=== PATIENT | female | born 1975 | race Caucasian/White ===

== ENCOUNTER → 2023-06-06 | Outpatient (CLI) | payer OTHER | END | disposition home or self-care (01) | LOC: RAD 12:59 | PROVIDERS: ATTEND Physician Assistant | DX: K76.89 Other specified diseases of liver (principal); R19.7 Diarrhea, unspecified; R10.84 Generalized abdominal pain; R19.4 Change in bowel habit; Z90.49 Acquired absence of other specified parts of digestive tract | CPT/HCPCS: 74176 ==